=== PATIENT | female | born 1975 | race Caucasian/White ===

== ENCOUNTER 2017-12-12 15:12 | Observation (INO) | payer OTHER ==
[~2017-12-12] VITALS: Ht 165.1 cm; Wt 95.9 kg
[2017-12-12 15:21] LABS: BASOPHIL (%) 0.5 % (0-1); EOSINOPHIL (%) 1.1 % (0-5); EOSINOPHIL COUNT 0.1 K/uL (0-0.3); HEMATOCRIT 42.9 % (36.0-46.0); HEMOGLOBIN 15.2 G/DL (11.9-15.5); IMMATURE GRANULOCYTE (%) 0.2 % (0.0-0.7); LYMPHOCYTE (%) 32.2 % (15-42); LYMPHOCYTE COUNT 1.8 K/uL (1.0-2.8); MCH 31.9 PG (29.0-34.0); MCHC 35.4 G/DL (30.0-36.0); MCV 90.1 FL (83-99); MONOCYTE (%) 5.5 % (3-12); MONOCYTE COUNT 0.3 K/uL (0-0.8); NEUTROPHIL (%) 60.5 % (45-76); NEUTROPHIL COUNT 3.4 K/uL (1.8-6.4); PLATELET COUNT 212 K/uL (156-360); RBC DIS.WIDTH-CV 12.1 % (11.8-14.6); RBC DIS.WIDTH-SD 39.8 % (39-53); RED BLOOD COUNT 4.76 M/uL (3.80-5.20); WHITE BLOOD COUNT 5.7 K/uL (4.1-10.2)
[2017-12-12 15:29] LABS: INTER. NORMALIZED RATIO 1.2
[2017-12-12 15:31] LABS: PTT 35.3 SEC (25-37)
[2017-12-12 15:32] LABS: AMYLASE 80 IU/L (1-118); CHLORIDE 104 mEq/L (99-109); POTASSIUM 3.6 mEq/L (3.7-5.4); SODIUM 140 mEq/L (136-147)
[2017-12-12 15:33] LABS: GLUCOSE 109 mg/dL (70-99)
[2017-12-12 15:37] LABS: CREATININE 0.8 mg/dL (0.6-1.3); SERUM ETHYL ALCOHOL < 10 mg/dL
[2017-12-12 15:38] LABS: UREA NITROGEN (BUN) 10 mg/dL (9-23)
[2017-12-12 15:40] LABS: LIPASE 35 U/L (1.0-51.0)
[2017-12-12 15:44] LABS: GFR ESTIMATE (CALCULATED) > 59 mL/min/
[2017-12-12 15:46] LABS: TROP-I INTERPRETATION NEGATIVE; TROPONIN-I < 0.01 ng/mL (0.0-0.30)
[2017-12-12 15:47] LABS: QUANTITATIVE HCG < 4.0 MIU/ML
[2017-12-12 15:56] LABS: APPEARANCE CLOUDY ((CLEAR)); BILIRUBIN NEGATIVE; BLOOD LARGE; COLOR YELLOW ((YELLOW)); GLUCOSE (STRIP) NEGATIVE; KETONES NEGATIVE; LEUKOCYTES TRACE; NITRITE NEGATIVE; PROTEIN (STRIP) NEGATIVE; UROBILINOGEN 0.2 MG/DL (0.2-1.0)
[2017-12-12 16:03] LABS: BACTERIA RARE /HPF; EPITHELIAL CELLS 3+ /HPF; MUCUS TRACE /LPF; RED BLOOD CELLS 0-5 /HPF (0-5); UCUL ADDED? YES
[2017-12-12 16:13] LABS: AMPHETAMINE NEGATIVE (500 ng/mL); BARBITURATES NEGATIVE (200 ng/mL); BENZODIAZEPINES NEGATIVE (150 ng/mL); BUPRENORPHINE NEGATIVE (10 ng/mL); COCAINE NEGATIVE (150 ng/mL); METHADONE NEGATIVE (200 ng/mL); METHAMPHETAMINE NEGATIVE (500 ng/mL); OPIATES (MORPHINE) NEGATIVE (100 ng/mL); OXYCODONE NEGATIVE (100 ng/mL); PHENCYCLIDINE NEGATIVE (25 ng/mL); PROPOXYPHENE NEGATIVE (300 ng/mL); THC CANNABINOIDS NEGATIVE (50 ng/mL); TRICYCLIC ANTIDEPRESSANTS NEGATIVE (300 ng/mL)
[2017-12-12] MEDS ORDERED: ZESTRIL10 MG PO (17:18)
[2017-12-12] MEDS ORDERED: NEURONTIN300 MG PO (17:18)
[2017-12-12] MEDS ORDERED: WELLBUTRIN SR150 MG PO (17:19)
[2017-12-12 18:29] LABS: HDL CHOLESTEROL 63 MG/DL (Desirable>=50); LDL CHOLESTEROL 117 mg/dL (Desirable<100); NON-HDL CHOLESTEROL 133 mg/dL (Desirable<160); TOTAL CHOLESTEROL 196 mg/dL (Desirable<200); TRIGLYCERIDES 81 MG/DL (Normal: <150)
[2017-12-12 19:53] VITALS: BP 136/82
[2017-12-12 23:55] VITALS: BP 135/70
[2017-12-13 04:01] VITALS: BP 127/63
[2017-12-13 07:45] VITALS: BP 123/74
[2017-12-13 09:49] LABS: HEMOGLOBIN A1c (GLYCOHEMOGLOB) 4.6 % (Below 5.7)
[2017-12-13 11:53] VITALS: BP 122/73
[2017-12-13 15:45] VITALS: BP 134/87; BP 141/81
[2017-12-13 20:18] VITALS: BP 144/103
[2017-12-14 11:30] VITALS: BP 141/81
[2017-12-14] MEDS ORDERED: ATORVASTATIN CA80 MG PO (12:42)
== END 2017-12-14 14:18 | disposition home or self-care (01) ==
LOC: EME 15:12 → 4SOUTH 17:09 → EDOF 17:09 → ENRESERV 17:12 → EDOF 17:18 → ENRESERV 17:41 → 4SOUTH 19:30
PROVIDERS: Family Medicine
DX: R20.2 Paresthesia of skin (principal); M79.7 Fibromyalgia; G47.33 Obstructive sleep apnea (adult) (pediatric); G25.81 Restless legs syndrome; G43.909 Migraine, unspecified, not intractable, without status migrainosus; I10 Essential (primary) hypertension; Z88.2 Allergy status to sulfonamides
CPT/HCPCS: 70450; 70551; 72141; 73221; 80048; 80061; 81003; 82150; 83036; 83690; 84484; 84702; 85025; 85610; 85730; 86850; 86900; 86901; 87086; 93005; 93880; 99281; 99285; G0378; G0480